=== PATIENT | male | born 1960 | race American Indian/Alaskan Native ===

== ENCOUNTER 2019-05-03 16:05 | Emergency (ER) | payer MEDICARE ==
[2019-05-03] MEDS ORDERED: BOOSTRIX IM ONE (17:28)
[2019-05-03] MEDS ORDERED: CLEOCIN PO ONE (17:30)
[2019-05-03] MEDS ORDERED: NORCO 5/325 PO ONE (17:30)
--- NOTE | 2019-05-03 18:01 | Emergency Department Report ---
- General Chief Complaint: Skin/Abscess/Foreign Body Stated Complaint: RT ELBOW PAIN Time Seen by Provider: 05/03/19 17:11 Source: patient Mode of arrival: Ambulatory Limitations: No Limitations - History of Present Illness Initial Comments: Patient 59-year-old -[place] who presents for cellulitis or an irritation to her right posterior forearm times one week states he fell and scraped it on no now pain redness scant drainage patient denies diabetes there is no numbness no tingling or deformity no fever chills no nausea vomiting Onset/Timin -: week(s) Extremity Location: Right: Forearm Place: work Patient Tetanus UTD: No Context: accidental Associated Symptoms: pain, other (abrasion) - Related Data Previous Rx's Medication Instructions Recorded Last Taken Type traMADol [Ultram 50 MG tab] 50 mg PO Q6HR PRN #18 tablet 08/25/13 Unknown Rx Clindamycin [Clindamycin CAP] 300 mg PO Q8H 10 Days #30 cap 05/03/19 Unknown Rx traMADol [Ultram] 50 mg PO Q6HR PRN #12 tablet 05/03/19 Unknown Rx Allergies Allergy/AdvReac Type Severity Reaction Status Date / Time No Known Allergies Allergy Unverified 08/25/13 13:06 ED Review of Systems ROS: Stated complaint: RT ELBOW PAIN Other details as noted in HPI Constitutional: denies: chills, fever Eyes: denies: eye pain, eye discharge, vision change ENT: denies: ear pain, throat pain Respiratory: denies: cough, shortness of breath, wheezing Cardiovascular: denies: chest pain, palpitations Endocrine: no symptoms reported Gastrointestinal: denies: abdominal pain, nausea, diarrhea Genitourinary: denies: urgency, dysuria Musculoskeletal: denies: back pain, joint swelling, arthralgia Skin: lesions (abrasion right forearm ) Neurological: denies: headache, weakness, paresthesias Psychiatric: denies: anxiety, depression Hematological/Lymphatic: denies: easy bleeding, easy bruising ED Past Medical Hx - Past Medical History Previous Medical History?: Yes Hx Hypertension: Yes - Surgical History Past Surgical History?: Yes Additional Surgical History: Left leg - Social History Smoking Status: Never Smoker Substance Use Type: Alcohol - Medications Home Medications: Home Medications Medication Instructions Recorded Confirmed Last Taken Type traMADol [Ultram 50 MG tab] 50 mg PO Q6HR PRN #18 tablet 08/25/13 Unknown Rx Clindamycin [Clindamycin CAP] 300 mg PO Q8H 10 Days #30 cap 05/03/19 Unknown Rx traMADol [Ultram] 50 mg PO Q6HR PRN #12 tablet 05/03/19 Unknown Rx ED Physical Exam - General Limitations: No Limitations General appearance: alert, in no apparent distress - Head Head exam: Present: atraumatic, normocephalic - Eye Eye exam: Present: normal appearance, PERRL, EOMI Pupils: Present: normal accommodation - ENT ENT exam: Present: mucous membranes moist - Neck Neck exam: Present: normal inspection, full ROM. Absent: tenderness - Respiratory Respiratory exam: Present: normal lung sounds bilaterally. Absent: respiratory distress, wheezes, stridor - Cardiovascular Cardiovascular Exam: Present: regular rate, normal rhythm, normal heart sounds. Absent: systolic murmur, diastolic murmur, rubs, gallop - GI/Abdominal GI/Abdominal exam: Present: soft, normal bowel sounds. Absent: distended, tenderness, bruit, hernia - Rectal Rectal exam: Present: deferred - Extremities Exam Extremities exam: Present: normal inspection, full ROM, tenderness (right posterior forearm ), normal capillary refill. Absent: joint swelling - Expanded Upper Extremity Exam Right Forearm Wrist exam: Present: full ROM, tenderness, swelling, erythema. Absent: abrasion, laceration, ecchymosis, deformity, crepidus, dislocation, tenderness over anatomical snuff box, pain with axial thumb loading Neuro motor exam: Present: wrist extension intact, thumb opposition intact, thumb IP flexion intact, thumb adduction intact Neurosensory exam: Present: 2-point discrimination, radial nerve intact, ulnar nerve intact, median nerve intact Vascular: Present: normal capillary refill, radial pulse, brachial pulse, ulnar pulse. Absent: pulse deficit radial art, pulse deficit ulnar art, pulse deficit brachial art - Back Exam Back exam: Present: normal inspection, full ROM. Absent: tenderness, rash noted - Neurological Exam Neurological exam: Present: alert, oriented X3, CN II-XII intact, normal gait, reflexes normal. Absent: motor sensory deficit - Psychiatric Psychiatric exam: Present: normal affect, normal mood - Skin Skin exam: Present: warm, dry, intact, normal color, erythema (right forearm as above ). Absent: rash ED Course Vital Signs 05/03/19 16:12 Temperature 98.2 F Pulse Rate 88 Respiratory 20 Rate Blood Pressure 180/92 O2 Sat by Pulse 100 Oximetry ED Medical Decision Making - Medical Decision Making this is right forearm cellulitis xray neg for foreignbody no osteomyelitis, no fever no chills plan: tetanus, clindmycin, wound care follow up with pcp in 2-3 days return to ed if symptoms worsen pt verbalized agreement and understanding of discharge plan. Critical care attestation.: If time is entered above; I have spent that time in minutes in the direct care of this critically ill patient, excluding procedure time. ED Disposition Clinical Impression: Cellulitis of forearm, right Disposition: DC-01 TO HOME OR SELFCARE Is pt being admited?: No Does the pt Need Aspirin: No Condition: Stable Instructions: Cellulitis (ED) Prescriptions: Clindamycin [Clindamycin CAP] 300 mg PO Q8H 10 Days #30 cap traMADol [Ultram] 50 mg PO Q6HR PRN #12 tablet PRN Reason: Pain Referrals: [facility] [Outside] - 3-5 Days Forms: Work/School Release Form(ED) Time of Disposition: 18:03
--- NOTE | 2019-05-03 18:10 | XRay Report ---
Right forearm 2 views INDICATION: Right forearm pain IMPRESSION: The right forearm is intact. Some soft tissue swelling along the more proximal forearm. Signer Name: Nathanael Wick MD Signed: 05/03/2019 6:05 PM Workstation Name: [id number]
[2019-05-03 18:19] VITALS: BP 174/90
[2019-05-03 18:36] LABS: Basophils % (Auto) 0.8 % (0.0-1.8); Eosinophils # (Auto) 0.1 K/mm3 (0.0-0.4); Eosinophils % (Auto) 1.3 % (0.0-4.3); Hematocrit 41.2 % (35.5-45.6); Hemoglobin 13.9 gm/dl (11.8-15.2); Lymphocytes # (Auto) 1.9 K/mm3 (1.2-5.4); Lymphocytes % (Auto) 31.9 % (13.4-35.0); Mean Corpuscular HGB Conc 34 % (32-34); Mean Corpuscular Volume 94 fl (84-94); Monocytes # (Auto) 0.6 K/mm3 (0.0-0.8); Monocytes % (Auto) 10.4 % (0.0-7.3); Platelet Count 300 K/mm3 (140-440); Red Blood Count 4.39 M/mm3 (3.65-5.03); Red Cell Distribution Width 13.7 % (13.2-15.2)
== END 2019-05-03 18:18 | disposition home or self-care (01) ==
LOC: ED 16:05
DX: L03.113 Cellulitis of right upper limb (principal); I10 Essential (primary) hypertension
CPT/HCPCS: 36415; 85025; 90471; 90715

== ENCOUNTER 2019-09-25 07:50 | Emergency (ER) | payer MEDICARE ==
[2019-09-25] MEDS ORDERED: cloNIDine 0.2 MG TAB PO STA (08:18)
[2019-09-25 09:02] VITALS: BP 173/98
--- NOTE | 2019-09-25 09:38 | Emergency Department Report ---
ED General Adult HPI - General Chief complaint: Dental/Oral Stated complaint: RT EAR ACHE Time Seen by Provider: 09/25/19 08:06 Source: patient Mode of arrival: Ambulatory Limitations: No Limitations - History of Present Illness Initial comments: 59-year-old male admitted much department complaining of waking up with an initial toothache to the left lower molar region which had been definitively resolving begin to be present as bilateral air pain and ear pressure. Reports no dizziness. Reports no chest pain, palpitations or palpitations, no nausea, no vomiting, no visual changes, fever, no chills, no sweats. He reports having a known history of hypertension which she has plans on initiated and blood pressure medication with the provider whom he has been in contact but is unsure of the name at present. Improves with: none, immobilization Associated Symptoms: denies: confusion, chest pain, cough, diaphoresis, nausea/vomiting, shortness of breath, syncope, weakness Treatments Prior to Arrival: none - Related Data Previous Rx's Medication Instructions Recorded Last Taken Type traMADoL [Ultram 50 MG tab] 50 mg PO Q6HR PRN #18 tablet 08/25/13 Unknown Rx Clindamycin [Clindamycin CAP] 300 mg PO Q8H 10 Days #30 cap 05/03/19 Unknown Rx traMADoL [Ultram] 50 mg PO Q6HR PRN #12 tablet 05/03/19 Unknown Rx Desloratadine [Clarinex] 5 mg PO DAILY #7 tablet 09/25/19 Unknown Rx predniSONE [Deltasone] 20 mg PO QDAY #7 tab 09/25/19 Unknown Rx Allergies Allergy/AdvReac Type Severity Reaction Status Date / Time No Known Allergies Allergy Verified 09/25/19 07:52 ED Review of Systems ROS: Stated complaint: RT EAR ACHE Other details as noted in HPI Comment: All other systems reviewed and negative ED Past Medical Hx - Past Medical History Hx Hypertension: Yes - Surgical History Additional Surgical History: Left leg - Social History Smoking Status: Never Smoker Substance Use Type: None - Medications Home Medications: Home Medications Medication Instructions Recorded Confirmed Last Taken Type traMADoL [Ultram 50 MG tab] 50 mg PO Q6HR PRN #18 tablet 08/25/13 Unknown Rx Clindamycin [Clindamycin CAP] 300 mg PO Q8H 10 Days #30 cap 05/03/19 Unknown Rx traMADoL [Ultram] 50 mg PO Q6HR PRN #12 tablet 05/03/19 Unknown Rx Desloratadine [Clarinex] 5 mg PO DAILY #7 tablet 09/25/19 Unknown Rx predniSONE [Deltasone] 20 mg PO QDAY #7 tab 09/25/19 Unknown Rx ED Physical Exam - General Limitations: No Limitations General appearance: alert, in no apparent distress - Head Head exam: Present: atraumatic, normocephalic - Eye Eye exam: Present: normal appearance - ENT ENT exam: Present: mucous membranes moist. Absent: TM's normal bilaterally (effusion to the bilateral tympanic membrane is no perforation no erythema noted no exudate no canal swelling no tragal tenderness no mastoid tenderness) - Neck Neck exam: Present: normal inspection. Absent: tenderness, meningismus - Respiratory Respiratory exam: Present: normal lung sounds bilaterally. Absent: respiratory distress - Cardiovascular Cardiovascular Exam: Present: regular rate, normal rhythm. Absent: systolic murmur, diastolic murmur, rubs, gallop - GI/Abdominal GI/Abdominal exam: Present: soft, normal bowel sounds - Rectal Rectal exam: Present: deferred - Extremities Exam Extremities exam: Present: normal inspection - Back Exam Back exam: Present: normal inspection - Neurological Exam Neurological exam: Present: alert, oriented X3, CN II-XII intact, normal gait. Absent: motor sensory deficit - Expanded Neurological Exam Expanded Patient oriented to: Present: person, place, time Speech: Present: fluid speech Cranial nerves: EOM's Intact: Normal Cerebellar function: Romberg: Normal - Psychiatric Psychiatric exam: Present: normal affect, normal mood - Skin Skin exam: Present: warm, dry, intact, normal color. Absent: rash ED Course Vital Signs 09/25/19 09/25/19 09/25/19 07:54 08:26 08:29 Temperature 98.4 F 98.9 F Pulse Rate 97 H 79 79 Respiratory 18 20 Rate Blood Pressure 214/115 183/94 183/94 Blood Pressure [Left] O2 Sat by Pulse 100 98 Oximetry 09/25/19 09:02 Temperature Pulse Rate 80 Respiratory Rate Blood Pressure Blood Pressure 173/98 [Left] O2 Sat by Pulse Oximetry ED Medical Decision Making - Medical Decision Making During the patients emergency department stay they were noted to have at least one blood pressure measure reading greater than 120/80. Blood pressure was systolic was greater than 200/110 while out front when we rechecked his blood pressure and the back it was 180 over the low 90s. He was a symptomatically during his entire hospital visit and neurovascularly intact. Upon discharge blood pressure 173/80. Due to this measurement I verbally educated the patient on hypertension and recommended they follow-up with their primary care doctor in the next 5-7 days for repeat measurement of their blood pressure and if it remains persistently elevated that their primary care doctor may start them on medications to control their blood pressure. I also recommended several lifestyle modifications (weight loss, dietary sodium restriction, increase physical activity and moderate alcohol consumption). Patient is asymptomatic and according to the ACEP guidelines currently treatment not warranted Critical care attestation.: If time is entered above; I have spent that time in minutes in the direct care of this critically ill patient, excluding procedure time. ED Disposition Clinical Impression: Middle ear effusion, HTN (hypertension) Disposition: DC-01 TO HOME OR SELFCARE Is pt being admited?: No Does the pt Need Aspirin: No Condition: Stable Instructions: Otitis Media (ED), Hypertension (ED), DASH Eating Plan (ED), Low Sodium Diet (ED) Prescriptions: Desloratadine [Clarinex] 5 mg PO DAILY #7 tablet predniSONE [Deltasone] 20 mg PO QDAY #7 tab Referrals: YOUNG ROMAN MD [Staff Physician] - 3-5 Days
== END 2019-09-25 09:50 | disposition home or self-care (01) ==
LOC: ED 07:50
DX: H92.01 Otalgia, right ear (principal); I10 Essential (primary) hypertension; K08.89 Other specified disorders of teeth and supporting structures
CPT/HCPCS: 99282